=== PATIENT | female | born 2000 | race Caucasian/White ===

== ENCOUNTER 2024-02-29 15:21 | Outpatient (AMB) | payer OTHER, SELFPAY ==
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
[2024-02-29 15:36] VITALS: BP 124/72; PULSE 86; TEMP 36.7; O2SAT 99; BMI 20.9
== END 2024-02-29 16:11 | disposition home or self-care (01) ==
PROVIDERS: PCP Nurse Practitioner Family; Visit Provider Physician Assistant
DX: F41.1 Generalized anxiety disorder (principal); F33.0 Major depressive disorder, recurrent, mild
CPT/HCPCS: 96127; 99203; G2211

== ENCOUNTER 2024-07-25 10:06 | Outpatient (AMB) | payer OTHER, SELFPAY ==
--- NOTE | 2024-07-25 10:10 | MHC.PC.OV ---
Vital Signs 07/25/24 10:11 Height 5 ft 4.65 in Weight 137 lb 6 oz BMI 23.1 BP 106/76 Blood Pressure Location Rt brachial Position Sitting Pulse 92 Pulse Source Pulse Oximeter Pulse Oximetry (%) 98 Oxygen Delivery Method Room Air Intake Visit Reasons: Anxiety Intake Note: Follow up anxiety Allergies ondansetron [From Zofran] Allergy (Intermediate, Verified 07/25/24 10:11) Hives Tobacco use date assessed: 02/29/24 Dental Screening Dental Screen Date: 02/29/24 HPI Anxiety HPI Details Pt is a 23 y.o female who presents today for a follow up of anxiety. She reports a hx of anxiety and depression. Psych: She was started on lexapro at last visit and feels like it is effective. 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 She has been really struggling with this. She denies any SI/HI but feels a bit overwhelmed with everything going on at campus. She states she would do better living in a different building. She is following with a school counselor. Goes to [employer] for [employer]. Father, sister and brother have christa syndrome. Pt does not. [facility] Medical History (Updated 02/29/24 @ 16:17 by Nubia Escobedo CMA) Hypercholesteremia Mild recurrent major depression Generalized anxiety disorder Family History (Updated 02/29/24 @ 16:17 by Nubia Escobedo CMA) Mother Asthma Social History (Updated 02/29/24 @ 15:34 by Nubia Escobedo CMA) Housing: House Housing Other:: House with Mom and on campus Patient Tobacco Use Status: Never used Tobacco e-Cigarette/Vaping Use: Never Used Second Hand Smoke Exposure: No service: No Current occupational status: student Cognitive needs: No Hearing needs: No Vision needs: No Questionnaire PHQ-9 Over the last 2 weeks, how often have you been bothered by any of the following problems? 1. Little interest or pleasure in doing things: several days 2. Feeling down, depressed, or hopeless: several days 3. Trouble falling or staying asleep, or sleeping too much: several days 4. Feeling tired or having little energy: several days 5. Poor appetite or overeating: several days 6. Feeling bad about yourself - or that you are a failure or have let yourself or your family down: more than half the days 7. Trouble concentrating on things, such as reading the newspaper or watching television: several days 8. Moving or speaking so slowly that other people could have noticed. Or the opposite - being so fidgety or restless that you have been moving around a lot more than usual: not at all 9. Thoughts that you would be better off or of hurting yourself in some way: not at all Total score: 8 Source: Developed by Drs. Rodger Flowers, Zulma Suresh, Darion Zambrano and colleagues, with an educational christopher from [employer]. Thrive Questionnaire Date Thrive assessed: 02/29/24 I am a: Patient What is your living situation today?: I have a steady place to live Within the past 12 months, did the food you bought not last and you didn't have the money to get more?: Never true Within the past 12 months, did you worry whether your food would run out before you got money to buy more?: Never true Do you have trouble paying for medicines?: No Do you have trouble getting transportation to medical appointments?: No Do you have trouble paying your heating and electricity bill?: No Do you have trouble taking care of your child, family member or friend?: No Do you have trouble with day-to-day activities such as bathing, preparing meals, shopping, managing finances, etc.?: No Are you currently unemployed and looking for a job?: No Are you interested in more education?: No Please select the resources that you would like help with: None Currently or been in a relationship where the following occur: No concerns reported THRIVE Score: 0 AUDIT C Alcohol Use Questionnaire (AUDIT-C) 1. How often do you have a drink containing alcohol?: Monthly or less 2. How many drinks containing alcohol do you have on a typical day when you are drinking?: 1 or 2 3. How often do you have six or more drinks on one occasion?: Never Total Score: 1 CECILIA-7 AMB Questionnaire CECILIA-7 Date CECILIA - 7 assessed: 02/29/24 Feeling nervous, anxious, or on edge: 2 = More than half the days Not being able to stop or control worryin = More than half the days Worrying too much about different things: 2 = More than half the days Trouble relaxin = More than half the days Being so restless that it is hard to sit still: 2 = More than half the days Becoming easily annoyed or irritable: 1 = Several days Feeling afraid as if something awful might happen: 2 = More than half the days Total CECILIA-7 score (0-4 normal; 5-9 mild; 10-14 moderate; 15-21 severe): 13 Source: Developed by Drs. Rodger Flowers, Zulma Surehs, Darion Zambrano and colleagues, with an educational christopher from [employer]. Physical exam (Primary Care) Vital Signs: Last Vital Signs Pulse 92 07/25/24 10:11 BP 106/76 07/25/24 10:11 Pulse Ox 98 07/25/24 10:11 Oxygen Delivery Method Room Air 07/25/24 10:11 BMI result Body Mass Index 23.1 Tobacco/Smoking Status: Tobacco use Status Tobacco use date assessed 02/29/24 07/25/24 10:15 Patient Tobacco Use Status Never used Tobacco 07/25/24 10:15 e-Cigarette/Vaping Use Never Used 07/25/24 10:15 PHQ-9: PHQ-9 Score PHQ-9: Total score 8 07/25/24 10:19 Thrive Assessment: Date of Thrive Assessment Date Thrive assessed 02/29/24 07/25/24 10:15 Currently or been in a relationship where the following occur: No concerns reported Const Orientation/consciousness: patient oriented x3 HENMT Ears: hearing grossly normal bilaterally Neck Thyroid: Thyroid normal Lymphatic: no lymphadenopathy noted Resp Auscultation: clear to auscultation bilaterally Cardio Rate: regular rate Rhythm: regular rhythm Heart sounds: S1 normal heart sound present and S2 normal heart sound present GI Inspection: Yes normal to inspection Palpation (GI): Soft to palpation and Other GI palpation findings present (nontender, no cva tenderness) Auscultation: normoactive bowel sounds Rectal Exam - Female: deferred Skin General skin exam: no rashes or lesions noted Neuro General: patient oriented x3, gait normal and no focal motor deficits Coding Level of Care Code Est Pt Level 4 (56355) Diagnoses Mild recurrent major depression F33.0 Generalized anxiety disorder F41.1 Assessment & Plan Assessment & Plan (1) Mild recurrent major depression: Code(s): F33.0 - Major depressive disorder, recurrent, mild Category: Medical Plan: Continue current regimen. Letter provided. Advised patient to follow up if anything worsens or changes otherwise follow up in a couple months for a physical exam. Patient was advised to get labs prior to appointment. Patient understands and agrees with this plan. (2) Generalized anxiety disorder: Code(s): F41.1 - Generalized anxiety disorder Category: Medical Plan: As above Flu shot provided today.
[2024-07-25 10:11] VITALS: BP 106/76; PULSE 92; O2SAT 98; BMI 23.1
== END 2024-07-25 10:45 | disposition home or self-care (01) ==
LOC: HO.HMCFM 10:07
PROVIDERS: PCP Nurse Practitioner Family; Visit Provider Physician Assistant
DX: F33.0 Major depressive disorder, recurrent, mild (principal); F41.1 Generalized anxiety disorder

== ENCOUNTER → 2024-07-25 10:06 | Outpatient (BNVA) | payer OTHER, SELFPAY | PROVIDERS: PCP Nurse Practitioner Family; Visit Provider Physician Assistant | DX: F33.0 Major depressive disorder, recurrent, mild (principal); F41.1 Generalized anxiety disorder | CPT/HCPCS: 96127; 99212 ==

== ENCOUNTER 2024-10-11 15:32 | Outpatient (AMB) | payer OTHER, SELFPAY ==
--- NOTE | 2024-10-11 15:39 | A.OFFPC_ITS ---
Vital Signs 10/11/24 15:41 Height 5 ft 4.65 in Weight 141 lb 6 oz BMI 23.8 BP 114/60 Blood Pressure Location Lt brachial Position Sitting Pulse 89 Pulse Source Pulse Oximeter Pulse Oximetry (%) 99 Oxygen Delivery Method Room Air Intake Visit Reasons: physical Intake Note: Physical Allergies ondansetron [From Zofran] Allergy (Intermediate, Verified 10/11/24 15:39) Hives Medication List - Last Reconciled 10/11/24 by Clary Templeton PA-C escitalopram oxalate 5 mg PO DAILY Tobacco use date assessed: 02/29/24 Dental Screening Dental Screen Date: 02/29/24 HPI physical HPI Details Pt is a 24 y.o female who presents today for a physical. She reports a hx of anxiety and depression. Psych: She was started on lexapro at last visit and feels like it is effective. 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 She works at the [employer] and loves it there. Goes to [employer] for psychology. Father, sister and brother have christa syndrome. Pt does not. [facility] Medical History (Updated 02/29/24 @ 16:17 by Nubia Escobedo CMA) Hypercholesteremia Mild recurrent major depression Generalized anxiety disorder Family History (Updated 02/29/24 @ 16:17 by Nubia Escobedo CMA) Mother Asthma Social History (Updated 02/29/24 @ 15:34 by Nubia Escobedo CMA) Housing: House Housing Other:: House with Mom and on campus Alcohol intake: current Patient Tobacco Use Status: Never used Tobacco e-Cigarette/Vaping Use: Never Used Second Hand Smoke Exposure: No service: No Current occupational status: student Cognitive needs: No Hearing needs: No Vision needs: No Questionnaire PHQ-9 Over the last 2 weeks, how often have you been bothered by any of the following problems? 1. Little interest or pleasure in doing things: several days 2. Feeling down, depressed, or hopeless: several days 3. Trouble falling or staying asleep, or sleeping too much: more than half the days 4. Feeling tired or having little energy: more than half the days 5. Poor appetite or overeating: more than half the days 6. Feeling bad about yourself - or that you are a failure or have let yourself or your family down: more than half the days 7. Trouble concentrating on things, such as reading the newspaper or watching television: more than half the days 8. Moving or speaking so slowly that other people could have noticed. Or the opposite - being so fidgety or restless that you have been moving around a lot more than usual: not at all 9. Thoughts that you would be better off or of hurting yourself in some way: not at all Total score: 12 Depression Screening Interpretation: Positive Depression Screening Follow-up: Existing condition and In treatment Depression Screening Done: Yes 62686 - PHQ-9 Billing: Yes Source: Developed by Drs. Rodger Flowers, Zulma Suresh, Darion Zambrano and colleagues, with an educational christopher from [email or web address]. Thrive Questionnaire Date Thrive assessed: 10/11/24 I am a: Patient What is your living situation today?: I have a steady place to live Within the past 12 months, did the food you bought not last and you didn't have the money to get more?: Never true Within the past 12 months, did you worry whether your food would run out before you got money to buy more?: Never true Do you have trouble paying for medicines?: No Do you have trouble getting transportation to medical appointments?: No Do you have trouble paying your heating and electricity bill?: No Do you have trouble taking care of your child, family member or friend?: No Do you have trouble with day-to-day activities such as bathing, preparing meals, shopping, managing finances, etc.?: No Are you currently unemployed and looking for a job?: No Are you interested in more education?: Yes Please select the resources that you would like help with: None Currently or been in a relationship where the following occur: Controlled Emotionally THRIVE Score: 1 AUDIT C Alcohol Use Questionnaire (AUDIT-C) 1. How often do you have a drink containing alcohol?: Monthly or less 2. How many drinks containing alcohol do you have on a typical day when you are drinking?: 1 or 2 3. How often do you have six or more drinks on one occasion?: Never Total Score: 1 CECILIA-7 AMB Questionnaire CECILIA-7 Date CECILIA - 7 assessed: 10/11/24 Feeling nervous, anxious, or on edge: 2 = More than half the days Not being able to stop or control worryin = More than half the days Worrying too much about different things: 2 = More than half the days Trouble relaxin = More than half the days Being so restless that it is hard to sit still: 2 = More than half the days Becoming easily annoyed or irritable: 1 = Several days Feeling afraid as if something awful might happen: 0 = Not at all Total CECILIA-7 score (0-4 normal; 5-9 mild; 10-14 moderate; 15-21 severe): 11 Source: Developed by Drs. Rodger Flowers, Zulma Suresh, Darion Zambrano and colleagues, with an educational christopher from [email or web address]. CECILIA-7 Assessment Billing CECILIA-7 Assessment Tool: CECILIA-7 Assessment 69206 Physical exam (Primary Care) Vital Signs: Last Vital Signs Pulse 89 10/11/24 15:41 BP 114/60 10/11/24 15:41 Pulse Ox 99 10/11/24 15:41 Oxygen Delivery Method Room Air 10/11/24 15:41 BMI result Body Mass Index 23.8 Tobacco/Smoking Status: Tobacco use Status Tobacco use date assessed 02/29/24 07/25/24 10:15 Patient Tobacco Use Status Never used Tobacco 07/25/24 10:15 e-Cigarette/Vaping Use Never Used 07/25/24 10:15 Depression Screening Interpretation: Positive Depression Screening Follow-up: Existing condition and In treatment Thrive Assessment: Date of Thrive Assessment Date Thrive assessed 02/29/24 07/25/24 10:15 Currently or been in a relationship where the following occur: Controlled Emotionally Const Orientation/consciousness: patient oriented x3 HENMT Ears: hearing grossly normal bilaterally and TM's normal bilaterally General nose exam: No nasal polyps present Face and sinus: Yes sinuses nontender Mouth: Normal oral and palatal mucosa present Eyes Pupils: Equal, round and reactive pupils present EOM: EOMs intact bilaterally Neck Neck: Yes full ROM and Yes no lymphadenopathy Thyroid: Thyroid normal Chest Chest palpation & inspection: normal inspection of the chest Resp Auscultation: clear to auscultation bilaterally Cardio Rate: regular rate Rhythm: regular rhythm Heart sounds: S1 normal heart sound present and S2 normal heart sound present Peripheral pulses: Peripheral pulses 2+ throughout GI Other: Soft, nontender Auscultation: normal bowel sounds Rectal Exam - Female: deferred General: Yes no CVA tenderness Back/Spine/Pelvis Other: Nontender Back: no CVA tenderness Skin General skin exam: no rashes or lesions noted Neuro General: patient oriented x3, gait normal, CN's II-XI intact bilaterally and deep tendon reflexes 2+ bilaterally Cranial nerves: Yes Equal, round and reactive pupils present Motor exam (neuro): 5/5 motor strength present throughout Sensory Exam: double simultaneous stimulation for sensation normal Coordination: [id number] test normal and Romberg test negative Extrem General: Yes normal to inspection and Yes full ROM Psych Affect: normal affect Attitude: cooperative Thought process: Normal thought process present Thought content: Normal thought content present Insight: Good insight present (Psych) Judgement: Good judgement present (Psych) Coding Level of Care Code Est Pt Prev Care 18-39y(74944) Diagnoses Routine general medical examination at a health care facility Z00.00 Mild recurrent major depression F33.0 Generalized anxiety disorder F41.1 Additional Codes CECILIA-7 Assessment Billing - CECILIA-7 Assessment Tool: CECILIA-7 Assessment 07838 ([id number]) PHQ-9 - 70933 - PHQ-9 Billing: Yes ([id number]) Assessment & Plan Assessment & Plan (1) Routine general medical examination at a health care facility: Code(s): Z00.00 - Encounter for general adult medical examination without abnormal findings Plan: Health maintenance reviewed. She will complete labs we will follow up pending test results. Referral to materials coordinator for a Pap. (2) Mild recurrent major depression: Code(s): F33.0 - Major depressive disorder, recurrent, mild Category: Medical Plan: Continue Lexapro. Advised follow up in 6 months. Sooner if needed. (3) Generalized anxiety disorder: Code(s): F41.1 - Generalized anxiety disorder Category: Medical Plan: As above Orders: Referrals IRRIGATION TEACHER Referral Z01.419 - Encounter for gynecological examination (general) (routine) without abnormal findings Medications: Refilled escitalopram oxalate 5 mg PO DAILY 90 tabs 3RF
[2024-10-11 15:41] VITALS: BP 114/60; PULSE 89; O2SAT 99; BMI 23.8
== END 2024-10-11 17:05 | disposition home or self-care (01) ==
PROVIDERS: PCP Physician Assistant; Visit Provider Physician Assistant
DX: Z00.00 Encounter for general adult medical examination without abnormal findings (principal); F33.0 Major depressive disorder, recurrent, mild; F41.1 Generalized anxiety disorder

== ENCOUNTER → 2024-10-11 15:32 | Outpatient (BNVA) | payer OTHER, SELFPAY | PROVIDERS: PCP Physician Assistant; Visit Provider Physician Assistant | DX: Z00.00 Encounter for general adult medical examination without abnormal findings (principal); F41.1 Generalized anxiety disorder; F33.0 Major depressive disorder, recurrent, mild | CPT/HCPCS: 96127; 99395 ==

== ENCOUNTER 2025-05-16 11:23 | Outpatient (AMB) | payer OTHER, SELFPAY ==
--- OUTSIDE RECORDS SUMMARY | 2020-07-26 13:48 | XMS_ITS | Encounter Summary ---
Author Organization [facility] Address [address] [place] [phone] Phone Care Team Providers Care Farmworker Fur Name Role Phone Beti Garcia MD Primary Care Provider Encounter Details Date Type Department Care Team (Late st Contact Info) Description 07/26/2020 12:48 PM EST Hospital Encounter [facility] [address] [place] [phone] Adalgisa Walsh PA [address] [place] [address] [email or web address] Social History Tobacco Use Types Packs/Day Years Used Date Smoking Tobacco: Never Smokeless Tobacco: Never Alcohol Use Standard Drinks/Week Comments Never 0 (1 standard drink = 0.6 oz pur e alcohol) Education Answer Date Recorded Are you interested in more education? Not on jorge e 01/14/2023 Are you concerned about learning? Not on file 01/14/2023 No 01/14/2023 No 01/14/2023 Digital Access Answer Date Recorded No 02/12/2023 No 02/12/2023 No 02/12/2023 Reliable internet access at home? Not on file 02/12/2023 Device with a working camera? Not on file Comments Unknown Sex and Gender Information Value Date Recorded Sex Assigned at Not on file Legal Sex Female 11:31 AM EST Gender Identity Not on file Sexual Orientation Not on file documented as of this encounter Functional Status documented as of this encounter Plan of Treatment Not on file documented as of this encounter Procedures Procedure Name Priority Date/Time Associated Diagnosis Comments XR ELBOW 3 OR MORE VIEWS (RIGHT) Urgent/patient waiting 07/26/2020 12:56 PM EST Sprain of right elbow, initial encounter documented in this encounter Results * XR ELBOW 3 OR MORE VIEWS (RIGHT) (07/26/2020 12:56 PM EST) Anatomical Region Laterality Modality Elbow Right Radiographic Negin ging 07/26/2020 1:05 PM EST Impressions 07/26/2020 1:05 PM EST No acute bony abnormality. POS - [id number] Narrative 07/26/2020 1:05 PM EST Frontal, lateral, and oblique views disclose no fracture, subluxation, or other significant abnormality involving the visualized regional skeletal structures. No elevation of the distal humeral fat pads is noted. Procedure Note Donald Gomez MD - 07/26/2020 Frontal, lateral, and oblique views disclose no fracture, subluxation, orother significant abnormality involving the visualized regional skeletalstructures. No elevation of the distal humeral fat pads is noted. IMPRESSION: No acute bony abnormality. POS - [id number] Adalgisa ARAIZA IMG XR UPPER EXTREMITY Final Result documented in this encounter Visit Diagnoses Not on filedocumented in this encounter Care Teams Farmworker Fur Relationship Specialty Start Date End Date Beti Garcia MD [address] [place] [phone] PCP - General Pediatrics 07/26/20 documented as of this encounter Additional Source Comments The information contained in this document represents components of the legal health record. It is not the complete legal health record.[facility]
--- OUTSIDE RECORDS SUMMARY | 2020-07-26 14:02 | XMS_ITS | Encounter Summary ---
Author Organization [facility] Address [address] [place] [address] Phone Care Team Providers Care General Practitioner Name Role Phone Beti Garcia MD Primary Care Provider [phone] Encounter Details Date Type Department Care Team (Late st Contact Info) Description 07/26/2020 1:02 PM EST Hospital Encounter [facility] [address] [place] [address] Adalgisa Walsh PA [address] [place] [address] [email or web address] Social History Tobacco Use Types Packs/Day [...] on filedocumented in this encounter Care Teams General Practitioner Relationship Specialty Start Date End Date Beti Garcia MD [address] [place] [phone] PCP - General Pediatrics 07/26/20 documented as of this encounter Additional Source Comments The information contained in this document represents components of the legal health record. It is not the complete legal health record.[facility]
--- NOTE | 2025-05-16 11:46 | A.OFFPC_ITS ---
Vital Signs 05/16/25 11:49 Height 5 ft 4.65 in Weight 136 lb 6 oz BMI 22.9 BP 112/70 Blood Pressure Location Lt brachial Position Sitting Respiration 12 Pulse 98 Pulse Source Pulse Oximeter Temp 98.1 F Temp Source Oral Pulse Oximetry (%) 98 Oxygen Delivery Method Room Air Intake Visit Reasons: medication review Intake Note: Irregular periods. Inside Outside Sales Representative Required: No Allergies ondansetron (From Zofran) Allergy (Intermediate, Verified 10/11/24 15:39) Hives Medication List - Last Reconciled 05/16/25 by Clary Templeton PA-C desogestrel-ethinyl estradiol 0.15-0.03 mg (Apri) 1 tab PO DAILY escitalopram oxalate 5 mg PO DAILY Tobacco use date assessed: 02/29/24 Dental Screening Dental Screen Date: 05/16/25 Did you have a dental visit in the last 12 months?: No Did you have a dental problem in the last 6 months where you did not have access to dental care?: No Was dental information given to patient?: Patient has dentist HPI medication review HPI Details Patient is a 24-year-old female who presents today for an acute problem visit. She is tearful today because she has been having abdominal pain/pelvic pain for the last 6 weeks with her menses. She states that she has been experiencing heavy bleeding with lower abdominal cramping and a ?hard ?pain in her lower abdomen. Initially the pain was just related to when she was having her period but now it does not seem to be going away. Her last episode of bleeding and did yesterday but last night and today she is still having abdominal pain. States that it feels like it is in her pelvis and left lower abdomen. She is concerned because she is feeling tired and like her clothes are not fitting her anymore. She says it feels like she has lost weight with this but has a decreased appetite was of the abdominal discomfort. She thinks she has lost about 10 lb. She denies any nausea, vomiting, diarrhea or constipation. No fevers or chills. No abnormal vaginal discharge. She states that there was no previous . Prior to March her cycle was normal and regular. She is on OCPs. She does not currently have a finish saw operator. She is currently sexually active and in relationship with a male partner. No abnormal family history of any aws software development engineer etiology. [facility] Medical History (Updated 05/16/25 @ 12:06 by Clary Templeton PA-C) Hypercholesteremia Mild recurrent major depression Generalized anxiety disorder Family History Mother Asthma Social History (Updated 10/11/24 @ 15:43 by Nubia Escobedo CMA) Housing: House Housing Other:: House with Mom and on campus Alcohol intake: current Patient Tobacco Use Status: Never used Tobacco e-Cigarette/Vaping Use: Never Used Second Hand Smoke Exposure: No service: No Current occupational status: student Cognitive needs: No Hearing needs: No Vision needs: No Questionnaire Thrive Questionnaire Date Thrive assessed: 10/11/24 I am a: Patient What is your living situation today?: I have a steady place to live Within the past 12 months, did the food you bought not last and you didn't have the money to get more?: Never true Within the past 12 months, did you worry whether your food would run out before you got money to buy more?: Never true Do you have trouble paying for medicines?: No Do you have trouble getting transportation to medical appointments?: No Do you have trouble paying your heating and electricity bill?: No Do you have trouble taking care of your child, family member or friend?: No Do you have trouble with day-to-day activities such as bathing, preparing meals, shopping, managing finances, etc.?: No Are you currently unemployed and looking for a job?: No Are you interested in more education?: Yes Please select the resources that you would like help with: None Currently or been in a relationship where the following occur: Controlled Emotionally THRIVE Score: 1 AUDIT C Alcohol Use Questionnaire (AUDIT-C) 1. How often do you have a drink containing alcohol?: Monthly or less 2. How many drinks containing alcohol do you have on a typical day when you are drinking?: 1 or 2 3. How often do you have six or more drinks on one occasion?: Never Total Score: 1 CECILIA-7 AMB Questionnaire CECILIA-7 Date CECILIA - 7 assessed: 10/11/24 Source: Developed by Drs. Rodger Flowers, Zulma Suresh, Darion Zambrano and colleagues, with an educational christopher from [employer]. Physical exam (Primary Care) Vital Signs: Last Vital Signs Temp 98.1 F 05/16/25 11:49 Pulse 98 05/16/25 11:49 Resp 12 05/16/25 11:49 BP 112/70 05/16/25 11:49 Pulse Ox 98 05/16/25 11:49 Oxygen Delivery Method Room Air 05/16/25 11:49 BMI result Body Mass Index 22.9 Tobacco/Smoking Status: Tobacco use Status Tobacco use date assessed 02/29/24 05/16/25 11:47 Patient Tobacco Use Status Never used Tobacco 05/16/25 11:47 e-Cigarette/Vaping Use Never Used 05/16/25 11:47 Thrive Assessment: Date of Thrive Assessment Date Thrive assessed 10/11/24 05/16/25 11:47 Currently or been in a relationship where the following occur: Controlled Emotionally Const Orientation/consciousness: patient oriented x3 HENMT Ears: hearing grossly normal bilaterally Neck Thyroid: Thyroid normal Lymphatic: no lymphadenopathy noted Resp Auscultation: clear to auscultation bilaterally Cardio Rate: regular rate Rhythm: regular rhythm Heart sounds: S1 normal heart sound present and S2 normal heart sound present GI Inspection: Yes normal to inspection Palpation (GI): Tenderness to palpation present (GI) in the LLQ and suprapubicly and Guarding due to palpation present (GI) in the LLQ Auscultation: normoactive bowel sounds Rectal Exam - Female: deferred Skin General skin exam: no rashes or lesions noted Neuro General: patient oriented x3, gait normal and no focal motor deficits Coding Level of Care Code Est Pt Level 4 (57639) Complex EM visit Add On G2211 Diagnoses Menorrhagia with irregular cycle N92.1 Pelvic pain R10.2 Left lower quadrant abdominal pain R10.32 Assessment & Plan Assessment & Plan (1) Menorrhagia with irregular cycle: Code(s): N92.1 - Excessive and frequent menstruation with irregular cycle Category: Medical Plan: As below (2) Pelvic pain: Code(s): R10.2 - Pelvic and perineal pain Category: Medical Plan: Ultrasound and referral to aws software development engineer (3) Left lower quadrant abdominal pain: Code(s): R10.32 - Left lower quadrant pain Category: Medical Plan: Patient does have some guarding on exam today but her abdomen is otherwise soft. She is afebrile. Her vitals are WNL. I did order a stat CT of the abdomen and pelvis today. I will have her complete labs today as well. Advised patient that if anything worsens or changes she has to go to the ER. Orders: Orders Basic Metabolic Panel Today N92.1 - Excessive and frequent menstruation with irregular cycle, R10.2 - Pelvic and perineal pain Liver Panel Today N92.1 - Excessive and frequent menstruation with irregular cycle, R10.2 - Pelvic and perineal pain TSH reflex Free T4 Today N92.1 - Excessive and frequent menstruation with irregular cycle, R10.2 - Pelvic and perineal pain IRON PROFILE Today N92.1 - Excessive and frequent menstruation with irregular cycle, R10.2 - Pelvic and perineal pain Ferritin Today N92.1 - Excessive and frequent menstruation with irregular cycle, R10.2 - Pelvic and perineal pain US pelvic and transvaginal Today N92.1 - Excessive and frequent menstruation with irregular cycle, R10.2 - Pelvic and perineal pain Vitamin B12 and Folate Today N92.1 - Excessive and frequent menstruation with irregular cycle, R10.2 - Pelvic and perineal pain Complete Blood Count Auto Diff Today N92.1 - Excessive and frequent menstruation with irregular cycle, R10.2 - Pelvic and perineal pain CT abdomen pelvis wo IV con Today R10.2 - Pelvic and perineal pain, R10.32 - Left lower quadrant pain Referrals WATCH ENGINEER Referral N92.1 - Excessive and frequent menstruation with irregular cy rachelle, R10.2 - Pelvic and perineal pain
[2025-05-16 11:49] VITALS: BP 112/70; PULSE 98; RESP 12; TEMP 36.7; O2SAT 98; BMI 22.9
--- OUTSIDE RECORDS SUMMARY | 2025-05-16 12:44 | XMS_ITS | Encounter Summary ---
Author Organization [facility] Address [address] [place] [address] Phone Care Team Providers Care Paper Tube Machine Operator Name Role Phone Beti Garcia MD Primary Care Provider [phone] Encounter Details Date Type Department Care Team (Late st Contact Info) Description 12/06/2016 Documentation [facility] [place] Family Medicine [address] [place] [address] Family Medicine, Physician [address] [place], [place] [id number] Social History Tobacco Use Types Packs/Day Years Used Date Smoking Tobacco: Never Assessed Comments Unknown Sex and Gender Information Value Date Recorded Sex Assigned at Female 09/21/2019 5:25 PM EST Legal Sex Female 5:23 PM EDT Gender Identity Female 09/21/2019 5:25 PM EST Sexual Orientation Straight 09/21/2019 5: 25 PM EST documented as of this encounter Plan of Treatment Not on file documented as of this encounter Visit Diagnoses Not on filedocumented in this encounter Care Teams Paper Tube Machine Operator Relationship Specialty Start Date End Date Beti Garcia MD [address] [place] [id number] PCP - General Pediatrics 06/12/21 12/15/23 documented as of this encounter
--- OUTSIDE RECORDS SUMMARY | 2025-05-16 12:44 | XMS_ITS | Encounter Summary ---
Author Organization [facility] Address [address] [place] [address] Phone Care Team Providers Care Window And Door Installer Name Role Phone Beti Garcia MD Primary Care Provider [phone] Reason for Visit * Reason Comments Med Refill Encounter Details Date Type Department Care Team (Late st Contact Info) Description 12/01/2023 Refill [facility] [place] [address] [place] [address] Beti Garcia MD [address] [place] [address] Anxiety and depression Social History Tobacco Use Types Packs/Day Years Used Date Smoking Tobacco: Never Smokeless Tobacco: Never Comments:Never smoker Alcohol Use Standard Drinks/Week Comments No 0 (1 standard drink = 0.6 oz pur e alcohol) Hunger/Food Answer Date Recorded In the last 12 months, did y ou or your family ever eat less than you felt you should because there wasn't enough money for food? No 08/29/2023 Stable Housing Answer Date Recorded Are you worried that in the next 2 months you may not have stable housing? No 08/29/2023 Transportation Concerns Answer Date Rec orded In the last 12 months, have you or your family ever had to go without healthcare because you didn't have a way to get there? No 08/29/2023 Hazards in Home Answer Date Recorded Think about the place you li ve. Do you have problems with any of the following? Pests (mice or roaches), mold, no/not working smoke detectors, water leaks, no window guards. No 2022 Financing Utilities Answer Date Recorde d In the last 12 months, has t he electric, gas, oil, or water company threatened to shut off your services in your home? No 08/29/2023 Safety at Home Answer Date Recorded Are you or your family worried about feeling saf e in your home? No 08/29/2023 Outside Support Answer Date Recorded Do you feel that you need mo re support from other people or programs to help you care for yourself or your family? No 08/29/2023 Understanding Health Concerns Answer Da te Recorded Do you need help understandi ng your or your child's healthcare needs (diagnosis, medications, plan, etc.)? No 08/29/2023 Financing Health Concerns Answer Date R ecorded In the last 12 months, was t here a time when your child needed to see a doctor or get medications or supplies but could not because of cost? No 08/29/2023 Missing School or Work Answer Date Kody rded Did you or your child miss s chool or work because of a health problem that could have been avoided? No 08/29/2023 Comments No Sex and Gender Information Value Date Recorded Sex Assigned at Female 09/21/2019 5:25 PM EST Legal Sex Female 5:23 PM EDT Gender Identity Female 09/21/2019 5:25 PM EST Sexual Orientation Straight 09/21/2019 5: 25 PM EST documented as of this encounter Miscellaneous Notes * Telephone Encounter - Tash Red LPN - 12/01/2023 8:51 AM EDT Pharm requesting fluoxetine 10mg. Last PE 09/02/23. Upcoming med check tomorrow. documented in this encounter Plan of Treatment Not on file documented as of this encounter Visit Diagnoses Diagnosis Anxiety and depression documented in this encounter Care Teams Window And Door Installer Relationship Specialty Start Date End Date Beti Garcia MD [address] [place] [id number] PCP - General Pediatrics 06/12/21 12/15/23 documented as of this encounter
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
--- OUTSIDE RECORDS SUMMARY | 2025-05-16 12:44 | XMS_ITS | Clinical Summary ---
Author Organization [facility] Address [address] [place] [address] Phone Care Team Providers Care Lease Attendant Name Role Phone Beti Garcia MD Primary Care Provider [phone] Allergies Active Allergy Reactions Criticality Noted Date Comments Ondansetron Hcl (Pf) Hives 07/26/2020 Medications montelukast (SINGULAIR) 10 mg tablet Take 10 mg by mouth nightly at bedtime. Active norethindrone-e thinyl estradiol-iron (ESTROSTEP FE) 1-20(5)/1-30(7) /1mg-35mcg (9) Tab Take 1 tablet by mouth daily. Active Active Problems No known active problems Social History Tobacco Use Types Packs/Day Years [...] on file Sexual Orientation Not on file Last Filed Vital Signs Vital Sign Reading Time Taken Comments Blood Pressure 102/70 07/26/2020 12:17 PM EST Pulse 72 07/26/2020 12:17 PM EST Temperature 37.1 C (98.7 F) 07/26/2020 12:17 PM EST Respiratory Rate 22 07/26/2020 12:17 PM EST Oxygen Saturation 98% 07/26/2020 12:17 PM EST Inhaled Oxygen Concentration - - Weight - - Height - - Body Mass Index - - Plan of Treatment Health Maintenance Due Date Last Done Comments DEPRESSION SCREENING 2014 SMOKING Hx and SMOKELESS TOBACCO SCREENING 2015 CHLAMYDIA SCREENING 2018 HEPATITIS C SCREENING 2020 HIV ONE-TIME SCREENING (18-65 YEARS) 2020 PAP SMEAR 2023 COVID-19 VACCINE ( season) 2024 02/14/2021, 01/21/2021 Adult Td,Tdap Booster 10/17/2024 10/17/2014 HIB VACCINES Completed 12/12/2003, 02/18, 01/17/2003, Additional history exists PNEUMOCOCCAL VACCINES (0-49 years) Aged Out 09/15/2004, 03/16/2003, 01/17/2003, Additional history exists No longer eligible based on patient's age to complete this topic HPV VACCINES Completed 05/19/2015, 10/17/2014 HEPATITIS A VACCINES Completed 09/20/2016, 09/17/20 15 MENINGOCOCCAL VACCINES (ACWY) Completed 10/06/2018, 10/17/2014 MENINGOCOCCAL VACCINES (B) Completed 07/20/2021, Medical Devices Not on file Insurance [employer] [facility] [employer] Care Teams Lease Attendant Relationship Specialty Start Date End Date Beti Garcia MD [address] [place] [address] PCP - General Pediatrics 07/26/20 Additional Source Comments The information contained in this document represents components of the legal health record. It is not the complete legal health record.[facility]
--- OUTSIDE RECORDS SUMMARY | 2025-05-16 12:44 | XMS_ITS | Encounter Summary ---
Author Organization [facility] Address [address] [place] [address] Phone Care Team Providers Care Concrete Stone Fabricating Supervisor Name Role Phone Beti Garcia MD Primary Care Provider [phone] Encounter Details Date Type Department Care Team (Late st Contact Info) Description 03/11/2014 [place]ation [facility] [place] [address] [place] [address] Family Medicine, Physician [address] [place], [place] [phone] Social History Tobacco Use Types Packs/Day Years [...] on filedocumented in this encounter Care Teams Concrete Stone Fabricating Supervisor Relationship Specialty Start Date End Date Beti Garcia MD [address] [place] [address] PCP - General Pediatrics 06/12/21 12/15/23 documented as of this encounter
--- OUTSIDE RECORDS SUMMARY | 2025-05-16 12:44 | XMS_ITS | Encounter Summary ---
Author Organization [facility] Address [address] [place] [address] Phone Care Team Providers Care Paper Folder Name Role Phone Beti Garcia MD Primary Care Provider [phone] Encounter Details Date Type Department Care Team (Late st Contact Info) Description 02/05/2018 Conversion [facility]counter [facility] [address] [address] Social History Tobacco Use Types Packs/Day Years [...] filedocumented in this encounter Care Teams Paper Folder Relationship Specialty Start Date End Date Beti Garcia MD [address] [place] [address] PCP - General Pediatrics 06/12/21 12/15/23 documented as of this encounter
--- OUTSIDE RECORDS SUMMARY | 2025-05-16 12:44 | XMS_ITS | Encounter Summary ---
Author Organization [facility] Address [address] [place] [address] Phone Care Team Providers Care Workshop Manager Name Role Phone Beti Garcia MD Primary Care Provider [phone] Encounter Details Date Type Department Care Team (Late st Contact Info) Description 11/19/2016 Documentation [facility] [place] [address] [place] [address] Family Medicine, Physician [address] [place] [address] Social History Tobacco Use Types Packs/Day Years [...] on filedocumented in this encounter Care Teams Workshop Manager Relationship Specialty Start Date End Date Beti Garcia MD [address] [place] [address] PCP - General Pediatrics 06/12/21 12/15/23 documented as of this encounter
--- OUTSIDE RECORDS SUMMARY | 2025-05-16 12:44 | XMS_ITS | Encounter Summary ---
Author Organization [facility] Address [address] [place] [address] Phone Care Team Providers Care Oil Truck Driver Name Role Phone Beti Garcia MD Primary Care Provider [phone] Encounter Details Date Type Department Care Team (Late st Contact Info) Description 05/05/2017 Conversion Encounter [facility] [address] [place] [address] Social History Tobacco Use Types Packs/Day Years Used Date Smoking Tobacco: Never Comments:Never smoker Comments Unknown Sex and Gender Information Value [...] on filedocumented in this encounter Care Teams Oil Truck Driver Relationship Specialty Start Date End Date Beti Garcia MD [address] [place] [address] PCP - General Pediatrics 06/12/21 12/15/23 documented as of this encounter
--- OUTSIDE RECORDS SUMMARY | 2025-05-16 12:44 | XMS_ITS | Encounter Summary ---
Author Organization [facility] Address [address] [place] [address] Phone Care Team Providers Care Director Check Name Role Phone Beti Garcia MD Primary Care Provider [phone] Encounter Details Date Type Department Care Team (Late st Contact Info) Description 12/02/2016 Documentation [facility] [place] [address] [place] [address] Family Medicine, Physician [address] [place], [place] [phone] Social History Tobacco Use Types Packs/Day Years [...] on filedocumented in this encounter Care Teams Director Check Relationship Specialty Start Date End Date Beti Garcia MD [address] [place] [address] PCP - General Pediatrics 06/12/21 12/15/23 documented as of this encounter
--- OUTSIDE RECORDS SUMMARY | 2025-05-16 12:44 | XMS_ITS | Encounter Summary ---
Author Organization [facility] Address [address] [place] [address] Phone Care Team Providers Care Rn Urology Name Role Phone Beti Garcia MD Primary Care Provider [phone] Encounter Details Date Type Department Care Team (Late st Contact Info) Description 11/19/2016 Documentation [facility] [place] [address] [place] [address] Family Medicine, Physician [address] [place] [address] Social History Tobacco Use Types [...] on filedocumented in this encounter Care Teams Rn Urology Relationship Specialty Start Date End Date Beti Garcia MD [address] [place] [id number] PCP - General Pediatrics 06/12/21 12/15/23 documented as of this encounter
--- OUTSIDE RECORDS SUMMARY | 2025-05-16 12:44 | XMS_ITS | Encounter Summary ---
Author Organization [facility] Address [address] [place] [address] Phone Care Team Providers Care Security Assistant Name Role Phone Beti Garcia MD Primary Care Provider [phone] Encounter Details Date Type Department Care Team (Late st Contact Info) Description 12/06/2016 Documentation [facility] [place] [address] [place] [address] Family Medicine, Physician [address] [place], [place] [phone] Social History Tobacco Use Types Packs/Day Years [...] on filedocumented in this encounter Care Teams Security Assistant Relationship Specialty Start Date End Date Beti Garcia MD [address] [place] [address] PCP - General Pediatrics 06/12/21 12/15/23 documented as of this encounter
--- OUTSIDE RECORDS SUMMARY | 2025-05-16 12:44 | XMS_ITS | Encounter Summary ---
Author Organization [facility] Address [address] [place] [address] Phone Care Team Providers Care Helper Marble Finisher Name Role Phone Beti Garcia MD Primary Care Provider [phone] Encounter Details Date Type Department Care Team (Late st Contact Info) Description 12/02/2016 Documentation [facility] [place] [address] [place] [address] Family Medicine, Physician [address] [place], [place] [phone] Social History Tobacco Use Types Packs/Day Years [...] on filedocumented in this encounter Care Teams Helper Marble Finisher Relationship Specialty Start Date End Date Beti Garcia MD [address] [place] [address] PCP - General Pediatrics 06/12/21 12/15/23 documented as of this encounter
== END 2025-05-16 12:32 | disposition home or self-care (01) ==
LOC: HO.HMCFM 11:24
PROVIDERS: PCP Physician Assistant; Visit Provider Physician Assistant
DX: N92.1 Excessive and frequent menstruation with irregular cycle (principal); R10.2 Pelvic and perineal pain; R10.32 Left lower quadrant pain

== ENCOUNTER 2025-05-16 13:02 | Outpatient (REF) | payer OTHER, SELFPAY ==
--- NOTE | ~2025-05-16 | CT_ITS ---
EXAMINATION: CT ABDOMEN AND PELVIS WITHOUT CONTRAST CLINICAL INFORMATION: R10.2 - Pelvic and perineal pain COMPARISON: None available. TECHNIQUE: Multidetector volumetric imaging was performed from the superior aspect of the liver through the pubic symphysis. Sagittal and coronal reformatted images were obtained on the technologist's workstation. This CT examination was performed using dose optimization techniques as appropriate, variously including the following: *Automated exposure control *Adjustment of mA and/or kV according to patient size (this includes techniques or standardized protocols for targeted exams where dose is matched to indication/reason for exam; i.e. extremities or head) *Use of iterative reconstruction technique DLP: 373 mGY*cm FINDINGS: LUNG BASES: The visualized lung bases are unremarkable. LIVER, GALLBLADDER, AND BILIARY TREE: The liver is normal in size, shape, and attenuation. No focal hepatic lesion or biliary ductal dilatation is present. The gallbladder is unremarkable with no evidence of radiopaque gallstones, gallbladder wall thickening, or obvious pericholecystic inflammatory changes. PANCREAS: Unremarkable. SPLEEN: Unremarkable. ADRENAL GLANDS: Unremarkable. KIDNEYS AND URETERS: The kidneys are normal in size, shape, and attenuation. No hydronephrosis, hydroureter, or calculi seen. No perinephric stranding. BLADDER: Unremarkable. GASTROINTESTINAL TRACT: The small and large bowel are unremarkable. The appendix is not well demonstrated. ABDOMINAL WALL: No significant hernia is appreciated. LYMPH NODES: Normal. VASCULAR: Unremarkable. PELVIC VISCERA: Simple cyst in the right ovary measures 2.2 x 3.7 cm. Left ovary and uterus are within normal limits. OSSEOUS STRUCTURES: Unremarkable. CT/CT abdomen pelvis wo IV con IMPRESSION: 3.7 cm simple right ovarian cyst requires no further follow-up. Fleischner guidelines were followed. Electronically signed by: Mike Hager MD 05/16/2025 05:02 PM EDT
[2025-05-16] MEDS: Barium Sulfate Oral (Berry) 450 ML ORAL.SUSP 900 ML PO (16:24)
== END 2025-05-16 13:03 | disposition home or self-care (01) ==
LOC: HO.CT 13:02
PROVIDERS: Visit Provider Physician Assistant
DX: R10.2 Pelvic and perineal pain (principal); R10.32 Left lower quadrant pain; N92.1 Excessive and frequent menstruation with irregular cycle
CPT/HCPCS: 74176; 99212

== ENCOUNTER → 2025-05-16 13:05 | Outpatient (BNV) | payer OTHER, SELFPAY | PROVIDERS: Visit Provider Radiology Diagnostic Radiology | DX: N83.291 Other ovarian cyst, right side (principal) | CPT/HCPCS: 74176 ==

== ENCOUNTER 2025-06-20 12:18 | Outpatient (AMB) | payer OTHER, SELFPAY ==
--- OUTSIDE RECORDS SUMMARY | 2020-07-26 13:48 | XMS_ITS | Encounter Summary ---
Author Organization [facility] Address [address] [place] [phone] Phone Care Team Providers Care Regional Director Of Admissions Name Role Phone Beti Garcia MD Primary Care Provider [phone] Encounter Details Date Type Department Care Team (Late st Contact Info) Description 07/26/2020 12:48 PM EST Hospital Encounter [facility] [address] [place] [phone] Adalgisa Walsh PA [address] [place] [address] [email or web address] Social History Tobacco Use Types Packs/Day Years [...] on filedocumented in this encounter Care Teams Regional Director Of Admissions Relationship Specialty Start Date End Date Beti Garcia MD [address] [place] [phone] PCP - General Pediatrics 07/26/20 documented as of this encounter Additional Source Comments The information contained in this document represents components of the legal health record. It is not the complete legal health record.[facility]
--- OUTSIDE RECORDS SUMMARY | 2020-07-26 14:02 | XMS_ITS | Encounter Summary ---
Author Organization [facility] Address [address] [place] [phone] Phone Care Team Providers Care Farm Management Teacher Name Role Phone Beti Garcia MD Primary Care Provider [phone] Encounter Details Date Type Department Care Team (Late st Contact Info) Description 07/26/2020 1:02 PM EST Hospital Encounter [facility] [address] [place] [phone] Adalgisa Walsh PA [address] [place] [address] [email or web address] Social History Tobacco Use Types Packs/Day Years [...] Name Priority Date/Time Associated Diagnosis Comments XR FOREARM 2 VIEWS (RIGHT) Urgent/patient waiting 07/26/2020 1:06 PM EST Sprain of right elbow, initial encounter documented in this encounter Results * XR Forearm 2 Views (Right) (07/26/2020 1:06 PM EST) Anatomical Region Laterality Modality Forearm Right Radiographic Negin ging 07/26/2020 1:33 PM EST Impressions 07/26/2020 1:34 PM EST Normal examination. Narrative 07/26/2020 1:34 PM EST TECHNIQUE: XR FOREARM 2 VIEWS (RIGHT) COMPARISON: None. FINDINGS: There is no fracture or dislocation. Cartilage spaces are preserved. There is no elbow effusion. There is no radiopaque foreign body. Procedure Note Kylie Swan MD - 07/26/2020 TECHNIQUE: XR FOREARM 2 VIEWS (RIGHT) COMPARISON: None. FINDINGS: There is no fracture or dislocation. Cartilage spaces arepreserved. There is no elbow effusion. There is no radiopaque foreignbody. IMPRESSION: Normal examination. Adalgisa ARAIZA IMG XR UPPER EXTREMITY Final Result documented in this encounter Visit Diagnoses Not on filedocumented in this encounter Care Teams Farm Management Teacher Relationship Specialty Start Date End Date Beti Garcia MD [address] [place] [phone] PCP - General Pediatrics 07/26/20 documented as of this encounter Additional Source Comments The information contained in this document represents components of the legal health record. It is not the complete legal health record.[facility]
[2025-06-20 13:11] VITALS: BP 112/7; BMI 23.3
--- NOTE | 2025-06-20 13:11 | A.OFFVIS_ITS ---
Vital Signs 06/20/25 13:11 Height 5 ft 4 in Weight 136 lb BMI 23.3 BP 112/7 L Blood Pressure Location Rt brachial Position Sitting Intake Visit Reasons: Pelvic Pain/Internal ref Intake Note: pelvic pain for 2 mos lmp 05/10/25 upt negative ua neg Information Interpreted: non-clinical & clinical International Accountant: International Accountant Present (fazal) Accompanied by: Self / Same As Patient Allergies ondansetron (From Zofran) Allergy (Intermediate, Verified 06/20/25 13:14) Hives Medication List - Last Reconciled 06/20/25 by Beverly Cardoza LPN desogestrel-ethinyl estradiol 0.15-0.03 mg (Apri) 1 tab PO DAILY escitalopram oxalate 5 mg PO DAILY Is last menstrual period known: Yes Last menstrual period: 05/10/25 Patient : No Do you need a note to return to daycare/school/sports/work: No HPI Comments Details: Presenting referred from PCP regarding irregular menstrual cycles last 2 months. The patient developed pelvic pain CT scan done on 05/16/2025 showed the following: IMPRESSION: 3.7 cm simple right ovarian cyst requires no further follow-up. No previous Pap smear Pelvic pain has resolved Last menstrual cycle was few weeks ago The patient has been on control pills cyclicly for multiple years [facility] Medical History Hypercholesteremia Mild recurrent major depression Generalized anxiety disorder Family History Mother Asthma Social History Housing: House Housing Other:: House with Mom and on campus Alcohol intake: current Patient Tobacco Use Status: Never used Tobacco e-Cigarette/Vaping Use: Never Used Second Hand Smoke Exposure: No service: No Current occupational status: student Cognitive needs: No Hearing needs: No Vision needs: No Female Reproductive History Menstrual Date of last menstrual period: 05/10/25 Review of Systems Const All systems reviewed & are unremarkable except as noted in HPI and below Physical Exam Vital Signs: Last Vital Signs BP 112/7 L 06/20/25 13:11 BMI result Body Mass Index 23.3 General: Yes no CVA tenderness External Female Exam: normal external appearance and normal appearance of the urethra Speculum Exam - Vagina: normal appearance of the vagina, normal palpation, no lesions and no masses Speculum Exam - Cervix: normal appearance of the cervix, normal palpation, no lesions, no masses and nontender Bimanual exam- vagina & uterus: normal bimanual exam, normal palpation, uterine size normal, normal palpation, uterine shape normal, No Cervical tenderness present and non-tender Bimanual Exam- Adnexa, other: normal adnexae Back/Spine/Pelvis Back: no CVA tenderness Results AMB Test Urine AMB Test Urine Negative Last Edit by Beverly Cardoza LPN on 13:25 Results Reviewed Results Reviewed: Laboratory Last Values Tst Clinic Negative 06/20/25 13:15 Assessment & Plan Assessment & Plan (1) Abnormal uterine bleeding (AUB): Code(s): N93.9 - Abnormal uterine and vaginal bleeding, unspecified Category: Medical Plan: Urine dip and test done in the office were negative. GC/CT were angelito ected. Instructions given to patient to continue taking control pills as prescribed and follow up in 2 months if AUB persist will initiate a workup. All questions answered, the patient verbalized understanding Orders: Orders AMB HCG Urine Test Today Z32.02 - Encounter for test, result negative AMB Urinalysis Dipstick Today R10.20 - Pelvic and perineal pain unspecified side Coding Level of Care Code Est Pt Level 3 (25189) Diagnoses Abnormal uterine bleeding (AUB) N93.9
--- OUTSIDE RECORDS SUMMARY | 2025-06-20 13:53 | XMS_ITS | Encounter Summary ---
Author Organization [facility] Address [address] [place] [address] Phone Care Team Providers Care Information And Referral Director Name Role Phone Beti Garcia MD Primary Care Provider [phone] Encounter Details Date Type Department Care Team (Late st Contact Info) Description 11/19/2016 Documentation [facility] [place] [address] [place] [address] Family Medicine, Physician [address] [place] [address] Social History Tobacco Use Types [...] on filedocumented in this encounter Care Teams Information And Referral Director Relationship Specialty Start Date End Date Beti Garcia MD [address] [place] [address] PCP - General Pediatrics 06/12/21 12/15/23 documented as of this encounter
--- OUTSIDE RECORDS SUMMARY | 2025-06-20 13:53 | XMS_ITS | Encounter Summary ---
Author Organization [facility] Address [address] [place] [address] Phone Care Team Providers Care Sighter Name Role Phone Beti Garcia MD Primary Care Provider [phone] Encounter Details Date Type Department Care Team (Late st Contact Info) Description 03/11/2014 Documentation [facility] [place] [address] [place] [address] Family Medicine, Physician [address] [place], [place] [phone] Social History Tobacco Use Types Packs/Day Years [...] on filedocumented in this encounter Care Teams Sighter Relationship Specialty Start Date End Date Beti Garcia MD [address] [place] [address] PCP - General Pediatrics 06/12/21 12/15/23 documented as of this encounter
--- OUTSIDE RECORDS SUMMARY | 2025-06-20 13:53 | XMS_ITS | Encounter Summary ---
Author Organization [facility] Address [address] [place] [address] Phone Care Team Providers Care Mule Rider Name Role Phone Beti Garcia MD Primary Care Provider Encounter Details Date Type Department Care Team (Late st Contact Info) Description 02/05/2018 [facility]counter [facility] [address] [address] Social History Tobacco Use Types Packs/Day Years [...] on filedocumented in this encounter Care Teams Mule Rider Relationship Specialty Start Date End Date Beti Garcia MD [address] [place] [address] PCP - General Pediatrics 06/12/21 12/15/23 documented as of this encounter
--- OUTSIDE RECORDS SUMMARY | 2025-06-20 13:53 | XMS_ITS | Encounter Summary ---
Author Organization [facility] Address [address] [place] [address] Phone Care Team Providers Care Mold Yard Crane Operator Name Role Phone Beti Garcia MD Primary Care Provider [phone] Encounter Details Date Type Department Care Team (Late st Contact Info) Description 11/19/2016 [place] [facility] [place] [address] [place] [address] Family Medicine, Physician [address] [place] [address] Social History Tobacco Use Types [...] on filedocumented in this encounter Care Teams Mold Yard Crane Operator Relationship Specialty Start Date End Date Beti Garcia MD [address] [place] [address] PCP - General Pediatrics 06/12/21 12/15/23 documented as of this encounter
--- OUTSIDE RECORDS SUMMARY | 2025-06-20 13:54 | XMS_ITS | Encounter Summary ---
Author Organization [facility] Address [address] [place] [address] Phone Care Team Providers Care Jewelry Making Instructor Name Role Phone Beti Garcia MD Primary Care Provider [phone] Encounter Details Date Type Department Care Team (Late st Contact Info) Description 12/06/2016 Documentation [facility] [place] [address] [place] [address] Family Medicine, Physician [address] [place], [place] [phone] Social History Tobacco Use Types Packs/Day Years [...] on filedocumented in this encounter Care Teams Jewelry Making Instructor Relationship Specialty Start Date End Date Beti Garcia MD [address] [place] [address] PCP - General Pediatrics 06/12/21 12/15/23 documented as of this encounter
--- OUTSIDE RECORDS SUMMARY | 2025-06-20 13:54 | XMS_ITS | Encounter Summary ---
Author Organization [facility] Address [address] [place] [address] Phone Care Team Providers Care Physical Therapist Center Manager Name Role Phone Beti Garcia MD Primary Care Provider [phone] Encounter Details Date Type Department Care Team (Late st Contact Info) Description 12/02/2016 Documentation [facility] [place] [address] [place] [address] Family Medicine, Physician [address] [place], [place] [phone] Social History Tobacco Use Types Packs/Day Years [...] on filedocumented in this encounter Care Teams Physical Therapist Center Manager Relationship Specialty Start Date End Date Beti Garcia MD [address] [place] [address] PCP - General Pediatrics 06/12/21 12/15/23 documented as of this encounter
--- OUTSIDE RECORDS SUMMARY | 2025-06-20 13:54 | XMS_ITS | Clinical Summary ---
Author Organization [facility] Address [address] [place] [address] Phone Care Team Providers Care Racker Octave Board Name Role Phone Unavailable Primary Care Provider [...] remarkable for anxiety and depression. SCARED 41, [place] 10. Mother with hx of anxiety and [...] home. Frequently alone - mother working in [place] and gone most of the time, sister [...] disability services. Got her signed up on [employer] and she will upload forms for me [...] here to help with transition to private detention services. Meanwhile, continue fluoxetine 10 mg daily. [...] disability services. Got her signed up on [employer] and she will upload forms for me [...] remarkable for anxiety and depression. SCARED 41, [place] 10. Mother with hx of anxiety and depression. Has history of self injury. No current SI. Started on Prozac 10 mg ( low dose) advised about potential side effects including the black box warning of increased SI, in no significant side effects in 1 week increase to 20 mg. Advised to schedule an appointment with [facility]. Family is seeking therapy together. Follow up [...] icing afterwards. Supraumbilical hernia 09/21/20192020 Overview (10/03/2020): [facility] Pedi surg (Dr. Kiser) 09/21/19- plan [...] macular edema age: 49 Father's Brother Alive NE @ 39 Father's Sister Alive uveitis Maternal Grandfather Alive Materna l grandfather: bypass sugery/defebrillator Al/Bypass heart surgery, defebrillator age: 76 Maternal Grandmother Alive Materna l grandmother: hypertension/ obesity/hypertension, obesity age: 70 Mother Sharon [place] Alive Mother: Alive and well/healthy age: 40 Paternal Grandfather Paterna l grandfather: NE age 75 /NE age: 75 Paternal Grandmother Paterna l grandmother: [...] Health Maintenance Due Date Last Done Comments DTaP,Tdap,and Td Vaccines (7 - Td or Tdap) 10/17/2024 10/17/2014, 09/15/2007, 09/15/2007, Additional history exists Influenza Vaccines (#1) 2025 09/02/20 23, 07/20/2021, 07/21/2020, Additional history exists COVID-19 Vaccine (2024-10 6 season) 2025 09/02/2023, 09/29/2021, 02/14/2021, Additional history exists Hepatitis B Vaccines Completed [...] 07/20/2021, 10/03/2020 Procedures * Due to [place] [employer] law, this organization might not be sharing sensitive test results. Procedure Name Priority Date/Time Associated Diagnosis Comments CHLAMYDIA AND GONORRHEA, AMPLIFIED Routine 09/02/2023 2:40 PM EST Well adult exam from Last 3 Months or Most Recently Relevant to Health Maintenance Results * Due to [place] [employer] law, this organization might not be sharing sensitive test results. * Chlamydia and Gonorrhoea, Amplified (09/02/2023 2:40 PM EST) Chlamydia Trachomatis, DNA Probe NEGATIVE (NEG) [facility] Comment: No Chlamydia Trachomatis RNA detected in this patient's sample (REFERENCE RANGE/NORMAL VALUE: NOT DETECTED) Note: This test uses corn sheller- mediated amplification method to detect rRNA from C. Trachomatis URINE GC AMP PROBE NEGATIVE (NEG) [facility] Comment: No Neisseria Gonorrhoeae RNA detected in this patient's sample (REFERENCE RANGE/NORMAL VALUE: NOT DETECTED) NOTE: This test uses corn sheller-mediated amplification method to detect rRNA from N.Gonorrhoeae. [...] without risk of sexual abuse. Consult the [facility] if needed. Contact phone number . Therapeutic failure or success cannot be determined with the Aptima Combo2 assay since nucleic acid may persist following appropriate antimicrobial therapy. The Centers for Disease Control and Prevention (CDC) recommends confirmatory retesting using culture or a different nucleic acid amplification test when positive results occur, if indicated. Testing performed or reported by [facility], a Service of [facility], [address] [place] [address] Niels Cuellar MD, It Systems Manager [facility]# [id number] Urine (Urine) 09/02/2023 2:4 0 PM EST 09/02/2023 11:26 PM EST us Beti Garcia MD LAB MICROBIOLOGY - GENERAL ORDER LEONCIO Final Result [facility] from Last 3 Months or Most Recently Relevant to Health Maintenance
--- OUTSIDE RECORDS SUMMARY | 2025-06-20 13:54 | XMS_ITS | Encounter Summary ---
Author Organization [facility] Address [address] [place] [address] Phone Care Team Providers Care Gravity Prospecting Observer Helper Name Role Phone Beti Garcia MD Primary Care Provider [phone] Encounter Details Date Type Department Care Team (Late st Contact Info) Description 05/05/2017 Conversion Encounter [facility] [address] [place] [address] Social History Tobacco Use Types Packs/Day Years [...] on filedocumented in this encounter Care Teams Gravity Prospecting Observer Helper Relationship Specialty Start Date End Date Beti Garcia MD [address] [place] [address] PCP - General Pediatrics 06/12/21 12/15/23 documented as of this encounter
--- OUTSIDE RECORDS SUMMARY | 2025-06-20 13:54 | XMS_ITS | Encounter Summary ---
Author Organization [facility] Address [address] [place] [address] Phone Care Team Providers Care Raw Shellfish Preparer Name Role Phone Beti Garcia MD Primary Care Provider [phone] Encounter Details Date Type Department Care Team (Late st Contact Info) Description 12/06/2016 Documentation [facility] [place] [address] [place] [address] Family Medicine, Physician [address] [place], [place] [phone] Social History Tobacco Use Types Packs/Day Years [...] on filedocumented in this encounter Care Teams Raw Shellfish Preparer Relationship Specialty Start Date End Date Beti Garcia MD [address] [place] [address] PCP - General Pediatrics 06/12/21 12/15/23 documented as of this encounter
--- OUTSIDE RECORDS SUMMARY | 2025-06-20 13:54 | XMS_ITS | Clinical Summary ---
Author Organization [facility] Address [address] [place] [address] Phone Care Team Providers Care Financial Sales Advisor Name Role Phone Beti Garcia MD Primary Care Provider [phone] Allergies Active Allergy Reactions Criticality Noted Date [...] you interested in more education? Not on jogre e 01/14/2023 Are you concerned about learning? [...] SCREENING (18-65 YEARS) 2020 PAP SMEAR 2023 Adult Td,Tdap Booster 10/17/2024 10/17/2014 INFLUENZA VACCINE (#1) 2025 , 07/21/2020, 09/21/2019, Additional history exists COVID-19 VACCINE ( season) 2025 02/14/2021, 01/21/2021 HIB VACCINES Completed 12/12/2003, 02/18, 01/17/2003, Additional history exists PNEUMOCOCCAL VACCINES (0-49 years) Aged Out 09/15/2004, 03/16/2003, 01/17/2003, Additional history exists No longer eligible based on patient's age to complete this topic HPV VACCINES Completed 05/19/2015, 10/17/2014 HEPATITIS A VACCINES Completed 09/20/2016, 09/17/20 15 MENINGOCOCCAL VACCINES (ACWY) Completed 10/06/2018, 10/17/2014 MENINGOCOCCAL VACCINES (B) Completed 07/20/2021, Medical Devices Not on file Insurance [facility] [employer] [facility] [employer] Care Teams Financial Sales Advisor Relationship Specialty Start Date End Date Beti Garcia MD [address] [place] [address] PCP - General Pediatrics 07/26/20 Additional Source Comments The information contained in this document represents components of the legal health record. It is not the complete legal health record.[facility]
--- OUTSIDE RECORDS SUMMARY | 2025-06-20 13:54 | XMS_ITS | Encounter Summary ---
Author Organization [facility] Address [address] [place] [address] Phone Care Team Providers Care Annealing Furnace Tender Name Role Phone Beti Garcia MD Primary Care Provider [phone] Encounter Details Date Type Department Care Team (Late st Contact Info) Description 12/02/2016 Documentation [facility] [place] Family Medicine [address] [place] [address] Family Medicine, Physician [address] [place], [place] [phone] Social History Tobacco Use Types Packs/Day Years [...] on filedocumented in this encounter Care Teams Annealing Furnace Tender Relationship Specialty Start Date End Date Beti Garcia MD [address] [place] [address] PCP - General Pediatrics 06/12/21 12/15/23 documented as of this encounter
== END 2025-06-20 13:26 | disposition home or self-care (01) ==
LOC: HO.HWS 12:18
PROVIDERS: PCP Physician Assistant; Visit Provider Obstetrics & Gynecology
DX: N93.9 Abnormal uterine and vaginal bleeding, unspecified (principal); Z32.02 Encounter for pregnancy test, result negative
CPT/HCPCS: 99213

== ENCOUNTER 2025-06-20 12:18 | Outpatient (REF) | payer OTHER, SELFPAY ==
[2025-06-21 08:17] LABS: Bacterial Vaginosis PCR NEGATIVE (Negative); Candida Group PCR NOT DETECTED (Not Detect); Candida glab krusei PCR NOT DETECTED (Not Detect); Trichomonas vaginalis PCR NOT DETECTED (Not Detect)
[2025-06-21 09:57] LABS: CT PCR NOT DETECTED (Not Detect.); NG PCR NOT DETECTED (Not Detect.)
== END 2025-06-20 12:19 | disposition home or self-care (01) ==
LOC: HO.LNP 12:18
PROVIDERS: PCP Physician Assistant; Visit Provider Obstetrics & Gynecology
DX: N93.9 Abnormal uterine and vaginal bleeding, unspecified (principal); Z32.02 Encounter for pregnancy test, result negative; Z20.2 Contact with and (suspected) exposure to infections with a predominantly sexual mode of transmission
CPT/HCPCS: 81025; 81515; 87491; 87591; 99212